=== PATIENT | male | born 1970 | race African-American/Black ===

== ENCOUNTER 2017-04-18 20:03 | Emergency (ER) | payer OTHER ==
[~2017-04-18] VITALS: Ht 177.8 cm; Wt 210.0 kg
[2017-04-18] MEDS ORDERED: PREDNISONE 20MG TABLET PO ONE (22:15)
[2017-04-18] MEDS ORDERED: KETOROLAC 60MG/2ML VIAL IM ONE (22:15)
[2017-04-18] MEDS ORDERED: PENICILLIN G BENZATHINE 1,200,000 UNITS/2ML SYR IM ONE (22:15)
[2017-04-18 22:45] VITALS: BP 154/87
== END 2017-04-18 22:52 | disposition home or self-care (01) ==
LOC: ER 21:18
DX: J02.0 Streptococcal pharyngitis (principal); I10 Essential (primary) hypertension; E66.01 Morbid (severe) obesity due to excess calories; F12.10 Cannabis abuse, uncomplicated; Z68.44 Body mass index [BMI] 60.0-69.9, adult
CPT/HCPCS: 96372; 99284; J0561; J1885; J7512; Z7610

== ENCOUNTER 2018-12-20 21:26 | Emergency (ER) | payer MEDICAID ==
[~2018-12-20] VITALS: Ht 177.8 cm; Wt 205.0 kg
[~2018-12-20 21:26] MED LIST: ATOR10TA PO; BENA40TA9 PO; FURO-151 PO; HYDR-2510 PO; LABE100T5 PO
[2018-12-21] MEDS ORDERED: MORPHINE SULFATE 4 MG/ML CPJ (NOT FOR IM USE) IV STA (01:05)
[2018-12-21] MEDS ORDERED: ONDANSETRON HCL 4MG/2ML INJ IV STA (01:05)
[2018-12-21] MEDS ORDERED: METHOCARBAMOL 500MG TABLET PO ONE (01:15)
[2018-12-21] MEDS ORDERED: LORAZEPAM 2MG/ML CPJ IV ONE (03:30)
[2018-12-21] MEDS ORDERED: MORPHINE SULFATE 10 MG/ML CPJ IV ONE (03:30)
[2018-12-21 05:46] VITALS: BP 146/61
== END 2018-12-21 05:56 | disposition home or self-care (01) ==
LOC: ER 21:26
DX: M54.40 Lumbago with sciatica, unspecified side (principal); I10 Essential (primary) hypertension; F12.90 Cannabis use, unspecified, uncomplicated
CPT/HCPCS: 72100; 96374; 96375; 96376; 99283; J2060; J2270; J2405

== ENCOUNTER 2021-10-28 11:22 | Inpatient (IN) | payer OTHER ==
[2021-10-28] VITALS (7 sets, daily range): BP systolic 80–128; BP diastolic 53–86
[~2021-10-28] VITALS: Ht 177.8 cm; Wt 205.5 kg
[~2021-10-28 11:22] MED LIST changes: +ACET-2708 MT; +APIX5TAB MT; -BENA40TA9 PO; +BENA40TA91 PO; +COR3 MT; +FURO-151 MT; +GABA-529 MT; -HYDR-2510 PO; +ISOS1POW MC
[2021-10-28] MEDS ORDERED: ALBUTEROL (0.083%) 2.5MG/3ML NEB HHN STA (11:39)
[2021-10-28] MEDS ORDERED: IPRATROPIUM BROMIDE (0.02%) 0.5MG/2.5ML NEB HHN STA (11:39)
[2021-10-28] MEDS ORDERED: FUROSEMIDE 40MG/4ML VIAL IVP ONE (11:45)
[2021-10-28 12:51] LABS: BASOPHILS % 0.3 % (0.0-2.0); EOSINOPHILS % 0.4 % (0.0-5.0); HEMATOCRIT. 44.6 % (42.0-52.0); LYMPHOCYTES % 7.5 % (20.0-50.0); MEAN CORPUSCULAR HEMOGLOBIN 30.3 pg (28.0-32.0); MEAN CORPUSCULAR VOLUME 96.4 fL (80.0-94.0); MEAN PLATELET VOLUME 9.9 fl (7.4-10.4); MONOCYTES % 5.1 % (2.0-8.0); NEUTROPHILS % 86.7 % (40.0-76.0); PLATELET 150 x1000/uL (130-400); RED BLOOD CELL COUNT 4.62 mill/uL (4.7-6.1); RED CELL DISTRIBUTION WIDTH 15.4 % (11.6-14.6)
[2021-10-28 13:22] LABS: INR 1.1; PROTHROMBIN TIME 11.4 sec (9.6-11.0)
[2021-10-28 13:32] LABS: CHLORIDE 100 mEq/L (98-107)
[2021-10-28] MEDS ORDERED: ENOXAPARIN 150MG/ML SYR SUBCUT ONE (14:00)
[2021-10-28] MEDS: PANTOPRAZOLE SODIUM 40 MG/VIAL IV SCH (15:45)
[2021-10-28] MEDS ORDERED: ONDANSETRON HCL 4MG/2ML INJ IV PRN (15:45)
[2021-10-28] MEDS: LISINOPRIL 20MG TABLET PO SCH (15:45)
[2021-10-28] MEDS: APIXABAN 5 MG TABLET PO SCH (17:00)
[2021-10-28] MEDS: GABAPENTIN 100MG CAPSULE PO SCH (17:00)
[2021-10-28] MEDS: FUROSEMIDE 40MG/4ML VIAL IVP SCH (22:06)
[2021-10-28] MEDS: ATORVASTATIN CALCIUM 10MG TABLET PO SCH (22:07)
[2021-10-28] MEDS: CARVEDILOL 3.125 MG TABLET PO SCH (22:07)
[2021-10-28 23:34] LABS: CREATINE KINASE MB FRACTION 2.1 ng/mL (0.5-3.6)
[2021-10-29] VITALS (27 sets, daily range): BP systolic 71–124; BP diastolic 35–70
[2021-10-29 05:52] LABS: BASOPHILS % 0.4 % (0.0-2.0); EOSINOPHILS % 0.9 % (0.0-5.0); HEMATOCRIT. 36.6 % (42.0-52.0); HEMOGLOBIN. 12.8 g/dL (14.0-18.0); LYMPHOCYTES % 14.8 % (20.0-50.0); MEAN CORPUSCULAR HEMOGLOBIN 34.2 pg (28.0-32.0); MEAN CORPUSCULAR VOLUME 97.4 fL (80.0-94.0); MEAN PLATELET VOLUME 10.7 fl (7.4-10.4); MONOCYTES % 9.2 % (2.0-8.0); NEUTROPHILS % 74.7 % (40.0-76.0); PLATELET 130 x1000/uL (130-400); RED BLOOD CELL COUNT 3.76 mill/uL (4.7-6.1); RED CELL DISTRIBUTION WIDTH 15.2 % (11.6-14.6)
[2021-10-29 06:12] LABS: CHLORIDE 103 mEq/L (98-107)
[2021-10-29 06:22] LABS: CREATINE KINASE 58 IU/L (39-308)
[2021-10-29] MEDS: FUROSEMIDE 40MG/4ML VIAL IVP SCH ×3 (07:00→21:46)
[2021-10-29 08:51] LABS: BG BASE EXCESS -3.3 mmol/L (-2.0-2.0); BG CARBOXYHEMOGLOBIN 1.3 % (0.5-1.5); BG DEOXYHEMOGLOBIN 4.8 % (0.0-5.0); BG FRACTION INSPIRED OXYGEN 28; BG HCO3 ACT 23.4 mmol/L (22.0-26.0); BG METHEMOGLOBIN 0.2 % (0.0-1.5); BG OXYGEN SATURATION 95.1 % (92.0-98.5); BG OXYHEMOGLOBIN 93.7 % (94.0-97.0); BG PCO2 48.7 mmHg (35.0-45.0); BG SAMPLE SITE RIGHT RADIAL; BG TOTAL HEMOGLOBIN 13.6 g/dL (12.0-18.0); BG VENT MODE NASAL CANNULA
[2021-10-29] MEDS: LISINOPRIL 20MG TABLET PO SCH (09:20)
[2021-10-29] MEDS: PANTOPRAZOLE SODIUM 40 MG/VIAL IV SCH (09:20)
[2021-10-29] MEDS: GABAPENTIN 100MG CAPSULE PO SCH ×3 (09:20→17:25)
[2021-10-29] MEDS: APIXABAN 5 MG TABLET PO SCH ×2 (09:20→17:25)
[2021-10-29] MEDS: CARVEDILOL 3.125 MG TABLET PO SCH ×2 (09:20→21:47)
[2021-10-29] MEDS ORDERED: SPIR25TA6 PO (17:04)
[2021-10-29] MEDS ORDERED: CYCL10TA21 PO (17:04)
[2021-10-29] MEDS ORDERED: ISOS20TA8 PO (17:04)
[2021-10-29] MEDS ORDERED: TRIA1TAB94 PO (17:04)
[2021-10-29] MEDS: ACETAMINOPHEN 325MG TABLET PO PRN ×2 (17:24→21:47)
[2021-10-29 17:37] LABS: BG CARBOXYHEMOGLOBIN 1.4 % (0.5-1.5); BG FRACTION INSPIRED OXYGEN 21; BG HCO3 ACT 28.6 mmol/L (22.0-26.0); BG METHEMOGLOBIN 0.1 % (0.0-1.5); BG OXYGEN SATURATION 84.8 % (92.0-98.5); BG OXYHEMOGLOBIN 83.5 % (94.0-97.0); BG PCO2 58.3 mmHg (35.0-45.0); BG PH 7.309 (7.350-7.450); BG SAMPLE SITE RIGHT RADIAL; BG TOTAL HEMOGLOBIN 14.1 g/dL (12.0-18.0); BG VENT MODE ROOM AIR
[2021-10-29] MEDS: ATORVASTATIN CALCIUM 10MG TABLET PO SCH (21:47)
[2021-10-30] VITALS (24 sets, daily range): BP systolic 73–125; BP diastolic 37–68
[2021-10-30 06:12] LABS: CHLORIDE 99 mEq/L (98-107)
[2021-10-30 06:26] LABS: BASOPHILS % 0.2 % (0.0-2.0); EOSINOPHILS % 1.1 % (0.0-5.0); HEMATOCRIT. 40.1 % (42.0-52.0); HEMOGLOBIN. 12.7 g/dL (14.0-18.0); LYMPHOCYTES % 13.2 % (20.0-50.0); MEAN CORPUSCULAR HEMOGLOBIN 30.5 pg (28.0-32.0); MEAN CORPUSCULAR VOLUME 96.6 fL (80.0-94.0); MEAN PLATELET VOLUME 10.6 fl (7.4-10.4); MONOCYTES % 10.6 % (2.0-8.0); NEUTROPHILS % 74.9 % (40.0-76.0); PLATELET 146 x1000/uL (130-400); RED BLOOD CELL COUNT 4.15 mill/uL (4.7-6.1); RED CELL DISTRIBUTION WIDTH 15.7 % (11.6-14.6)
[2021-10-30] MEDS: FUROSEMIDE 40MG/4ML VIAL IVP SCH ×3 (06:48→21:39)
[2021-10-30] MEDS: GABAPENTIN 100MG CAPSULE PO SCH ×3 (09:03→18:22)
[2021-10-30] MEDS: CARVEDILOL 3.125 MG TABLET PO SCH ×2 (09:03→21:40)
[2021-10-30] MEDS: LISINOPRIL 20MG TABLET PO SCH (09:03)
[2021-10-30] MEDS: PANTOPRAZOLE SODIUM 40 MG/VIAL IV SCH (09:04)
[2021-10-30] MEDS: APIXABAN 5 MG TABLET PO SCH ×2 (09:04→18:22)
[2021-10-30] MEDS: ACETAMINOPHEN 325MG TABLET PO PRN (18:22)
[2021-10-30] MEDS: ATORVASTATIN CALCIUM 10MG TABLET PO SCH (21:39)
[2021-10-31] VITALS (13 sets, daily range): BP systolic 89–127; BP diastolic 37–70
[2021-10-31 06:14] LABS: BASOPHILS % 0.2 % (0.0-2.0); HEMATOCRIT. 38.8 % (42.0-52.0); HEMOGLOBIN. 12.1 g/dL (14.0-18.0); LYMPHOCYTES % 11.8 % (20.0-50.0); MEAN CORPUSCULAR HEMOGLOBIN 30.6 pg (28.0-32.0); MEAN CORPUSCULAR VOLUME 98.1 fL (80.0-94.0); MEAN PLATELET VOLUME 10.5 fl (7.4-10.4); MONOCYTES % 10.7 % (2.0-8.0); NEUTROPHILS % 76.3 % (40.0-76.0); PLATELET 139 x1000/uL (130-400); RED BLOOD CELL COUNT 3.95 mill/uL (4.7-6.1); RED CELL DISTRIBUTION WIDTH 16.3 % (11.6-14.6)
[2021-10-31 06:16] LABS: CHLORIDE 98 mEq/L (98-107)
[2021-10-31] MEDS: FUROSEMIDE 40MG/4ML VIAL IVP SCH ×2 (07:19→13:37)
[2021-10-31] MEDS: APIXABAN 5 MG TABLET PO SCH ×2 (08:10→17:35)
[2021-10-31] MEDS: GABAPENTIN 100MG CAPSULE PO SCH ×3 (08:10→17:36)
[2021-10-31] MEDS: CARVEDILOL 3.125 MG TABLET PO SCH ×2 (08:10→21:33)
[2021-10-31] MEDS ORDERED: FAMOTIDINE 20MG/2ML VIAL IV SCH (09:00)
[2021-10-31] MEDS: ATORVASTATIN CALCIUM 10MG TABLET PO SCH (21:31)
[2021-10-31] MEDS: ACETAMINOPHEN 325MG TABLET PO PRN (22:21)
[2021-11-01] VITALS (12 sets, daily range): BP systolic 99–129; BP diastolic 54–78
[2021-11-01] MEDS: HYDROCODONE/ACETAMINOPHEN 5/325MG TABLET PO PRN ×2 (03:53→13:12)
[2021-11-01 07:32] LABS: EOSINOPHILS % 1.2 % (0.0-5.0); HEMATOCRIT. 39.8 % (42.0-52.0); HEMOGLOBIN. 12.6 g/dL (14.0-18.0); LYMPHOCYTES % 12.5 % (20.0-50.0); MEAN CORPUSCULAR HEMOGLOBIN 30.6 pg (28.0-32.0); MEAN CORPUSCULAR VOLUME 97.1 fL (80.0-94.0); MEAN PLATELET VOLUME 10.5 fl (7.4-10.4); MONOCYTES % 9.9 % (2.0-8.0); NEUTROPHILS % 75.4 % (40.0-76.0); PLATELET 148 x1000/uL (130-400); RED CELL DISTRIBUTION WIDTH 15.2 % (11.6-14.6)
[2021-11-01 07:42] LABS: CHLORIDE 100 mEq/L (98-107)
[2021-11-01] MEDS: ACETAMINOPHEN 325MG TABLET PO PRN ×2 (09:09→16:11)
[2021-11-01] MEDS: FAMOTIDINE 20MG TABLET PO SCH (09:10)
[2021-11-01] MEDS: CARVEDILOL 3.125 MG TABLET PO SCH ×2 (09:11→21:31)
[2021-11-01] MEDS: APIXABAN 5 MG TABLET PO SCH ×2 (09:11→17:19)
[2021-11-01] MEDS: GABAPENTIN 100MG CAPSULE PO SCH ×3 (09:11→17:19)
[2021-11-01] MEDS ORDERED: NALOXONE HCL 0.4MG/ML VIAL IV PRN (19:45)
[2021-11-01] MEDS: ATORVASTATIN CALCIUM 10MG TABLET PO SCH (21:30)
[2021-11-02] VITALS (14 sets, daily range): BP systolic 102–153; BP diastolic 61–102
[2021-11-02 06:57] LABS: BASOPHILS % 0.4 % (0.0-2.0); HEMATOCRIT. 38.2 % (42.0-52.0); HEMOGLOBIN. 11.9 g/dL (14.0-18.0); LYMPHOCYTES % 10.2 % (20.0-50.0); MEAN CORPUSCULAR HEMOGLOBIN 30.7 pg (28.0-32.0); MEAN PLATELET VOLUME 9.7 fl (7.4-10.4); MONOCYTES % 9.6 % (2.0-8.0); NEUTROPHILS % 78.8 % (40.0-76.0); PLATELET 141 x1000/uL (130-400); RED BLOOD CELL COUNT 3.89 mill/uL (4.7-6.1); RED CELL DISTRIBUTION WIDTH 15.7 % (11.6-14.6)
[2021-11-02] MEDS ORDERED: VERAPAMIL HCL 2.5 MG/1 ML 2ML VIAL IV ONE (08:43)
[2021-11-02] MEDS ORDERED: DIPHENHYDRAMINE 50MG/ML VIAL ONE (08:43)
[2021-11-02] MEDS ORDERED: HEPARIN 1000 UNITS/ML 10ML ONE (08:43)
[2021-11-02] MEDS ORDERED: LIDOCAINE HCL/PF 1% 10 MG/ML 5ML VIAL ONE (08:43)
[2021-11-02] MEDS ORDERED: FENTANYL CITRATE/PF 50MCG/ML 2ML VIAL ONE (08:43)
[2021-11-02] MEDS ORDERED: IODIXANOL 320MG/ML 100 ML BOTTLE IV ONE (08:44)
[2021-11-02] MEDS ORDERED: MIDAZOLAM HCL 2 MG/2 ML VIAL ONE (08:44)
[2021-11-02] MEDS: FAMOTIDINE 20MG TABLET PO SCH (08:50)
[2021-11-02] MEDS: APIXABAN 5 MG TABLET PO SCH ×2 (08:50→17:44)
[2021-11-02] MEDS: GABAPENTIN 100MG CAPSULE PO SCH ×3 (08:50→17:44)
[2021-11-02] MEDS: CARVEDILOL 3.125 MG TABLET PO SCH ×2 (08:50→21:26)
[2021-11-02] MEDS ORDERED: ATROPINE SULFATE 1MG/10ML SYR IV PRN (10:45)
[2021-11-02] MEDS: ATORVASTATIN CALCIUM 10MG TABLET PO SCH (21:26)
[2021-11-03] VITALS (23 sets, daily range): BP systolic 124–150; BP diastolic 65–101
[2021-11-03] MEDS: APIXABAN 5 MG TABLET PO SCH ×2 (07:51→17:12)
[2021-11-03] MEDS: FAMOTIDINE 20MG TABLET PO SCH (07:51)
[2021-11-03] MEDS: GABAPENTIN 100MG CAPSULE PO SCH ×3 (07:51→17:12)
[2021-11-03] MEDS: CARVEDILOL 3.125 MG TABLET PO SCH ×2 (07:51→21:58)
[2021-11-03 09:06] LABS: BASOPHILS % 0.4 % (0.0-2.0); EOSINOPHILS % 0.8 % (0.0-5.0); HEMATOCRIT. 39.8 % (42.0-52.0); HEMOGLOBIN. 12.7 g/dL (14.0-18.0); LYMPHOCYTES % 9.2 % (20.0-50.0); MEAN CORPUSCULAR HEMOGLOBIN 30.8 pg (28.0-32.0); MEAN CORPUSCULAR VOLUME 96.8 fL (80.0-94.0); MEAN PLATELET VOLUME 10.4 fl (7.4-10.4); MONOCYTES % 10.6 % (2.0-8.0); PLATELET 160 x1000/uL (130-400); RED BLOOD CELL COUNT 4.11 mill/uL (4.7-6.1); RED CELL DISTRIBUTION WIDTH 15.1 % (11.6-14.6)
[2021-11-03 09:33] LABS: CHLORIDE 103 mEq/L (98-107)
[2021-11-03] MEDS ORDERED: FUROSEMIDE 100MG/10ML VIAL IVP NR (10:00)
[2021-11-03] MEDS: IPRATROPIUM/ALBUTEROL 0.5-3(2.5)MG/3ML NEB HHN SCH ×4 (10:01→21:15)
[2021-11-03 11:09] LABS: BG BASE EXCESS 8.9 mmol/L (-2.0-2.0); BG CARBOXYHEMOGLOBIN 1.6 % (0.5-1.5); BG DEOXYHEMOGLOBIN 6.9 % (0.0-5.0); BG FRACTION INSPIRED OXYGEN 32; BG HCO3 ACT 38.2 mmol/L (22.0-26.0); BG OXYHEMOGLOBIN 91.5 % (94.0-97.0); BG PCO2 77.3 mmHg (35.0-45.0); BG PH 7.312 (7.350-7.450); BG PO2 67.7 mmHg (75.0-100.0); BG SAMPLE SITE RIGHT RADIAL; BG TOTAL HEMOGLOBIN 13.6 g/dL (12.0-18.0); BG VENT MODE NASAL CANNULA
[2021-11-03] MEDS: ATORVASTATIN CALCIUM 10MG TABLET PO SCH (21:58)
[2021-11-04] VITALS (19 sets, daily range): BP systolic 107–162; BP diastolic 45–96
[2021-11-04] MEDS: IPRATROPIUM/ALBUTEROL 0.5-3(2.5)MG/3ML NEB HHN SCH ×7 (00:56→20:00)
[2021-11-04 08:01] LABS: BASOPHILS % 0.6 % (0.0-2.0); EOSINOPHILS % 1.4 % (0.0-5.0); HEMOGLOBIN. 11.9 g/dL (14.0-18.0); LYMPHOCYTES % 10.2 % (20.0-50.0); MEAN CORPUSCULAR HEMOGLOBIN 30.8 pg (28.0-32.0); MEAN CORPUSCULAR VOLUME 96.1 fL (80.0-94.0); MEAN PLATELET VOLUME 10.2 fl (7.4-10.4); MONOCYTES % 11.7 % (2.0-8.0); NEUTROPHILS % 76.1 % (40.0-76.0); PLATELET 154 x1000/uL (130-400); RED BLOOD CELL COUNT 3.85 mill/uL (4.7-6.1); RED CELL DISTRIBUTION WIDTH 15.1 % (11.6-14.6)
[2021-11-04 08:33] LABS: CHLORIDE 103 mEq/L (98-107)
[2021-11-04] MEDS: FUROSEMIDE 100MG/10ML VIAL IVP SCH (08:45)
[2021-11-04] MEDS: GABAPENTIN 100MG CAPSULE PO SCH ×3 (08:45→17:35)
[2021-11-04] MEDS: CARVEDILOL 3.125 MG TABLET PO SCH ×2 (08:45→21:37)
[2021-11-04] MEDS: FAMOTIDINE 20MG TABLET PO SCH (08:45)
[2021-11-04] MEDS: APIXABAN 5 MG TABLET PO SCH ×2 (08:45→17:34)
[2021-11-04 09:55] LABS: BG BASE EXCESS 6.7 mmol/L (-2.0-2.0); BG CARBOXYHEMOGLOBIN 1.7 % (0.5-1.5); BG DEOXYHEMOGLOBIN 6.3 % (0.0-5.0); BG FRACTION INSPIRED OXYGEN 34; BG HCO3 ACT 34.2 mmol/L (22.0-26.0); BG METHEMOGLOBIN 0.2 % (0.0-1.5); BG OXYGEN SATURATION 93.6 % (92.0-98.5); BG OXYHEMOGLOBIN 91.8 % (94.0-97.0); BG PCO2 61.3 mmHg (35.0-45.0); BG PH 7.365 (7.350-7.450); BG SAMPLE SITE RIGHT RADIAL; BG TOTAL HEMOGLOBIN 14.7 g/dL (12.0-18.0); BG VENT MODE NASAL CANNULA
[2021-11-04] MEDS: ATORVASTATIN CALCIUM 10MG TABLET PO SCH (21:37)
[2021-11-04] MEDS: HYDROCODONE/ACETAMINOPHEN 5/325MG TABLET PO PRN (23:09)
[2021-11-05] VITALS (16 sets, daily range): BP systolic 81–140; BP diastolic 32–81
[2021-11-05] MEDS: IPRATROPIUM/ALBUTEROL 0.5-3(2.5)MG/3ML NEB HHN SCH ×5 (04:00→16:21)
[2021-11-05 06:14] LABS: CHLORIDE 95 mEq/L (98-107)
[2021-11-05 06:43] LABS: BASOPHILS % 0.5 % (0.0-2.0); EOSINOPHILS % 1.3 % (0.0-5.0); HEMATOCRIT. 38.9 % (42.0-52.0); HEMOGLOBIN. 12.5 g/dL (14.0-18.0); LYMPHOCYTES % 10.5 % (20.0-50.0); MEAN CORPUSCULAR HEMOGLOBIN 30.8 pg (28.0-32.0); MEAN CORPUSCULAR VOLUME 95.8 fL (80.0-94.0); MEAN PLATELET VOLUME 10.7 fl (7.4-10.4); MONOCYTES % 9.4 % (2.0-8.0); NEUTROPHILS % 78.3 % (40.0-76.0); PLATELET 164 x1000/uL (130-400); RED BLOOD CELL COUNT 4.07 mill/uL (4.7-6.1); RED CELL DISTRIBUTION WIDTH 15.1 % (11.6-14.6)
[2021-11-05] MEDS: FAMOTIDINE 20MG TABLET PO SCH (08:22)
[2021-11-05] MEDS: FUROSEMIDE 100MG/10ML VIAL IVP SCH (08:23)
[2021-11-05] MEDS: CARVEDILOL 3.125 MG TABLET PO SCH (08:23)
[2021-11-05] MEDS: GABAPENTIN 100MG CAPSULE PO SCH ×3 (08:23→17:09)
[2021-11-05] MEDS: HYDROCODONE/ACETAMINOPHEN 5/325MG TABLET PO PRN ×2 (08:23→17:12)
[2021-11-05] MEDS: APIXABAN 5 MG TABLET PO SCH ×2 (08:23→17:09)
[2021-11-05 09:45] LABS: BG DEOXYHEMOGLOBIN 3.1 % (0.0-5.0); BG FRACTION INSPIRED OXYGEN 32; BG HCO3 ACT 35.3 mmol/L (22.0-26.0); BG METHEMOGLOBIN 0.3 % (0.0-1.5); BG OXYGEN SATURATION 96.9 % (92.0-98.5); BG OXYHEMOGLOBIN 95.6 % (94.0-97.0); BG PCO2 62.3 mmHg (35.0-45.0); BG PH 7.371 (7.350-7.450); BG SAMPLE SITE RIGHT RADIAL; BG TOTAL HEMOGLOBIN 12.6 g/dL (12.0-18.0); BG VENT MODE NASAL CANNULA
== END 2021-11-05 20:17 | disposition home health service (06) | DRG 192 ==
LOC: ER 11:22 → 5EST 14:11 → EDBEDREQTM 14:33 → EDBEDREQ 14:33 → ENRESERV 20:06
PROVIDERS: ADMIT Internal Medicine; ATTEND Internal Medicine
PROC: 5A09357 Assistance with Respiratory Ventilation, Less than 24 Consecutive Hours, Continuous Positive Airway Pressure (ICD-10-PCS; 2021-10-28)
PROC: B211YZZ Fluoroscopy of Multiple Coronary Arteries using Other Contrast (ICD-10-PCS; principal; 2021-11-02)
PROC: 5A09357 Assistance with Respiratory Ventilation, Less than 24 Consecutive Hours, Continuous Positive Airway Pressure (ICD-10-PCS; 2021-11-03)
DX: I13.0 Hypertensive heart and chronic kidney disease with heart failure and stage 1 through stage 4 chronic kidney disease, or unspecified chronic kidney disease (principal); J96.21 Acute and chronic respiratory failure with hypoxia; I21.4 Non-ST elevation (NSTEMI) myocardial infarction; I27.20 Pulmonary hypertension, unspecified; E44.1 Mild protein-calorie malnutrition; I82.432 Acute embolism and thrombosis of left popliteal vein; E66.2 Morbid (severe) obesity with alveolar hypoventilation; Z68.44 Body mass index [BMI] 60.0-69.9, adult; I50.23 Acute on chronic systolic (congestive) heart failure; N17.9 Acute kidney failure, unspecified; E87.1 Hypo-osmolality and hyponatremia; I42.9 Cardiomyopathy, unspecified; N18.32 Chronic kidney disease, stage 3b; E11.22 Type 2 diabetes mellitus with diabetic chronic kidney disease; E87.5 Hyperkalemia; G89.29 Other chronic pain; I25.10 Atherosclerotic heart disease of native coronary artery without angina pectoris; Z20.822 Contact with and (suspected) exposure to COVID-19; J45.909 Unspecified asthma, uncomplicated; I49.5 Sick sinus syndrome; J96.22 Acute and chronic respiratory failure with hypercapnia; Z82.49 Family history of ischemic heart disease and other diseases of the circulatory system; Z83.3 Family history of diabetes mellitus; Z95.0 Presence of cardiac pacemaker; Z79.01 Long term (current) use of anticoagulants; Z79.899 Other long term (current) drug therapy
CPT/HCPCS: 36415; 36600; 71045; 78580; 80048; 80053; 82375; 82550; 82553; 82805; 83605; 83880; 84484; 85025; 85379; 87426; 92950; 93005; 93454; 93970; 94640; 94660; 94664; 97161; 99291; C1769; C1887; C1893; C9113; C9803; J1200; J1644; J1650; J1940; J2250; J3010; J3490; Q9967